=== PATIENT | male | born 1995 | race Caucasian/White ===

== ENCOUNTER 2020-04-01 14:47 | Outpatient (CLI) | payer MEDICAID | END 2020-04-01 14:48 | disposition critical access hospital (66) | LOC: EMS 14:47 | PROVIDERS: ATTEND Surgery | DX: S71.112A Laceration without foreign body, left thigh, initial encounter (principal); W26.0XXA Contact with knife, initial encounter; Y93.89 Activity, other specified | CPT/HCPCS: A0425; A0429; A0999 ==

== ENCOUNTER 2020-04-01 15:12 | Day surgery (SDC) | payer MEDICAID ==
[2020-04-01] MEDS ORDERED: ceFAZolin 2 GM in SODIUM CHLORIDE 0.9% 100ML 100 ML IV STA (15:14)
[2020-04-01] MEDS ORDERED: TETANUS/DIPHTHERIA/PERTUSSIS 0.5 ML SYRINGE IM ONE (15:14)
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
[2020-04-01] MEDS ORDERED: IOVERSOL 320 100 ML VIAL IVP ONE ×2 (15:20→15:46)
[2020-04-01 15:25] LABS: BASOPHILS % (AUTO) 0.4 %; EOSINOPHILS # (AUTO) 0.2 10^3/uL (0.0-0.7); EOSINOPHILS % (AUTO) 1.6 %; HGB - HEMOGLOBIN 12.8 g/dL (14.0-18.0); LYMPHOCYTES # (AUTO) 2.7 10^3/uL (1.5-3.5); LYMPHOCYTES % (AUTO) 24.7 %; MEAN CORPUSCULAR HEMOGLOBIN 29.6 pg (27.0-31.0); MEAN CORPUSCULAR VOLUME 87.1 fL (80.0-94.0); MEAN PLATELET VOLUME 11.4 fL (7.4-11.4); MONOCYTES # (AUTO) 0.9 10^3/uL (0.0-1.0); MONOCYTES % (AUTO) 8.2 %; NEUTROPHILS % (AUTO) 64.6 %; PLT - PLATELET COUNT 147 10^3/uL (130-450); RED BLOOD COUNT 4.33 10^6/uL (4.70-6.10); RED CELL DISTRIBUTION WIDTH 12.8 % (12.0-15.0); WHITE BLOOD COUNT 10.8 x10^3/uL (4.8-10.8)
[2020-04-01 15:35] LABS: BUN - BLOOD UREA NITROGEN 16 mg/dL (6-20); CALCIUM 8.5 mg/dL (8.5-10.3); CARBON DIOXIDE - CO2 27 mmol/L (21-32); CHLORIDE 107 mmol/L (101-111); CREATININE 0.8 mg/dL (0.6-1.2); GLUCOSE 107 mg/dL (70-100); SODIUM 139 mmol/L (135-145)
[2020-04-01] MEDS ORDERED: LIDOCAINE 2%-EPI 1:100000 20 ML MDV SUBQ STA (15:43)
[2020-04-01 15:54] LABS: INR 1.1 (0.8-1.2); PT - PROTHROMBIN TIME 12.5 secs (9.9-12.6)
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
[2020-04-01] MEDS ORDERED: LIDOCAINE 2%-EPI 1:100000 20 ML MDV ONE (17:35)
[2020-04-01] MEDS ORDERED: BUPIVACAINE 0.5% PF 30 ML VIAL ONE (17:35)
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
[2020-04-01] MEDS ORDERED: KETAMINE 500 MG/10 ML VIAL IVP ONE (18:34)
[2020-04-01] MEDS ORDERED: MIDAZOLAM 2 MG/2 ML VIAL IVP ONE (18:34)
[2020-04-01] MEDS ORDERED: PROPOFOL 200 MG/20 ML VIAL IVP ONE (18:34)
[2020-04-01] MEDS ORDERED: fentaNYL 100 MCG/2 ML VIAL IVP ONE (18:34)
[2020-04-01] MEDS ORDERED: LIDOCAINE 1%-EPI 1:100000 20 ML MDV IM ONE (19:22)
[2020-04-01] MEDS ORDERED: BUPIVACAINE 0.5% PF 30 ML VIAL IM ONE ×2 (19:22)
[2020-04-01] MEDS ORDERED: LACTATED RINGERS 1,000 ML IV ONE ×3 (19:25→20:41)
[2020-04-01 20:12] LABS: HGB - HEMOGLOBIN 11.1 g/dL (14.0-18.0)
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
[2020-04-01 20:59] VITALS: BP 103/80
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
== END 2020-04-01 18:34 | disposition home or self-care (01) ==
LOC: ED 15:12 → SDS 18:33
PROVIDERS: ATTEND Surgery
DX: S71.112A Laceration without foreign body, left thigh, initial encounter (principal)
CPT/HCPCS: 12001; 20103; 73706; 80048; 80320; 85014; 85018; 85025; 85610; 86850; 86900; 86901; 86920; 90471; 90715; 96374; 99283; 99285; J7120; P9016; Q9967